=== PATIENT | female | born 1940 | race Caucasian/White ===

== ENCOUNTER 2017-02-07 18:45 | Emergency (ER) | payer OTHER ==
[~2017-02-07 18:45] MED LIST: ASPI325T PO; CIPR500T4 PO; EFFE75CA PO; EXFO5TAB PO; KLOR20TA6 PO; LEVO.125 PO; OMEP20TA PO; OXYC-360 PO; TEMA30CA PO; ZOVI200C24 PO
[2017-02-07 19:04] VITALS: BP 145/84; PULSE 75; RESP 20; TEMP 98.4; O2SAT 97
[2017-02-07] MEDS ORDERED: LEVO125T4 PO (20:14)
[2017-02-07] MEDS ORDERED: EXFO5TAB PO (20:32)
[2017-02-07] MEDS ORDERED: ACYC1CAP16 PO (20:32)
[2017-02-07] MEDS ORDERED: ASPI325T PO (20:32)
[2017-02-07] MEDS ORDERED: OMEP40CA2 PO (20:32)
[2017-02-07] MEDS ORDERED: POTA-163 PO (20:32)
[2017-02-07] MEDS ORDERED: TEMA30CA PO (20:32)
--- NOTE | 2017-02-07 21:53 | RADHPO ---
EXAM DATE/TIME: 02/07/2017 21:37 [facility] COMPARISON: No previous studies available for comparison. INDICATIONS : Right knee pain from fall today. MEDICAL HISTORY : Gastroesophageal reflux disease. Stroke. Hypertension. SURGICAL HISTORY : Hysterectomy. Appendectomy. ENCOUNTER: Initial ACUITY: 1 day PAIN SCORE: 5/10 LOCATION: Right knee FINDINGS: No fracture or subluxation seen of the right knee. No perceptible joint effusion or extra-articular s oft tissue swelling. There is osteoarthritis, moderate to severe the medial compartment and moderate at the lateral and patellofemoral compartments. CONCLUSION: Tricompartment osteoarthritis of the right knee. No fracture or subluxation. Cam Lo MD on February 07, 2017 at 21:50 Board Certified Radiologist. This report was verified electronically.
--- NOTE | 2017-02-07 21:58 | PD ---
HPI Chief Complaint: Injury Time Seen by Provider: 20:40 Travel History International Travel<30 days: No Contact w/Intl Traveler<30days: No Traveled to known affect area: No History of Present Illness HPI Approximately 6 hours prior to ER evaluation the patient experienced a mechanical fall well and tripping over a curb in the rain. She landed on her right knee. The pain has been constant since. It's worse with flexion and extension. She is ambulatory with a severe limp. She had no head injury or loss of consciousness. Mechanism was mechanical. The patient 76 years old. PFSH Past Medical History Arthritis: Yes Asthma: Yes Autoimmune Disease: No Blood Disorders: No Anxiety: Yes Depression: Yes Cancer: Yes (SKIN) High Cholesterol: Yes Cerebrovascular Accident: Yes (TIA) Diminished Hearing: No GERD: Yes Hiatal Hernia: Yes Hypertension: Yes Musculoskeletal: Yes (FIBROMYALGIA) Ulcer: Yes Influenza Vaccination: Yes PNEUMOCCOCAL Vaccine (Year): 2008 Past Surgical History AICD: No Genitourinary Surgery: Yes (BLADDER SURGERY FOR INCONTINENCE) Hysterectomy: Yes Pacemaker: No Other Surgery: Yes (SURGERY FOR REFLUX? HIATAL HERNIA?, BREAST REDUCTION) Social History Alcohol Use: No Tobacco Use: No Substance Use: No Allergies-Medications (Allergen,Severity, Reaction): Coded Allergies: Loratadine (Verified Allergy, Severe, ITCHY, 03/19/14) Reported Meds & Prescriptions Reported Meds & Active Scripts Active Reported Potassium Chloride ER (Potassium Chloride) 20 Meq Tab 20 Meq PO DAILY Temazepam 30 Mg Cap 30 Mg PO HS PRN Omeprazole 40 Mg Cap 40 Mg PO DAILY Aspirin 325 Mg Tab 325 Mg PO DAILY Exforge (Amlodipine-Valsartan) 5-160 Mg Tab 1 Tab PO DAILY Zovirax (Acyclovir) 200 Mg Cap 200 Mg PO DAILY Levothyroxine (Levothyroxine Sodium) 125 Mcg Tab 125 Mcg PO DAILY Review of Systems General / Constitutional: No: Fever, Chills Musculoskeletal: Positive: Pain Physical Exam Narrative GENERAL: 76-year-old female pleasant no acute distress SKIN: Warm and dry. GASTROINTESTINAL: Abdomen soft, non-tender, nondistended. Hepatic and splenic margins not palpable. MUSCULOSKELETAL: Minimal tenderness about the patella, fibular head and tibia on the left side. There is some mild generalized swelling throughout. Antalgic gait is observed. NEUROLOGICAL: Awake and alert. No obvious cranial nerve deficits. Motor grossly within normal limits. Normal speech. PSYCHIATRIC: Appropriate mood and affect; insight and judgment normal. Data Data Last Documented VS Vital Signs Date Time Temp Pulse Resp B/P Pulse Ox O2 Delivery O2 Flow Rate FiO2 02/07/17 19:04 98.4 75 20 145/84 97 Orders Knee, Complete (4vws) (02/07/17 ) MDM Medical Decision Making Medical Screen Exam Complete: Yes Emergency Medical Condition: Yes Medical Record Reviewed: Yes Differential Diagnosis knee fracture, contusion, internal derangement of knee, hemarthrosis Narrative Course X-ray reveals no acute fracture. Unfortunately the patient left prior to reassessment and to results of the x-ray of the knee. We had discussed the [place] knee criteria and why imaging was indicated in this scenario during the initial assessment. Evidently the son disagreed and they both left having waited about 3 hours. this visit will be recorded as a left AGAINST MEDICAL ADVICE since the patient left prior to discussion of diagnosis, treatment and for discussion of return precautions and follow-up plans. Diagnosis Primary Impression: Fall Qualified Code: W19.XXXA - Fall, initial encounter Additional Impressions: Contusion of right knee Qualified Code: S80.01XA - Contusion of right knee, initial encounter Left against medical advice Referrals: Dagoberto Goodwin MD call for appointment Additional Instructions: You have a choice when it comes to health care, and we are glad that you chose [facility]. Hopefully, we have met your expectations on today's visit. You are welcome to return to [facility] at any time, as we are committed to meeting the health care needs of our community. Med/Other Pt SpecificInfo: No Change to Meds Disposition: 07 AGAINST MEDICAL ADVICE Condition: Phan Aguilar MD Feb 07, 2017 21:58
== END 2017-02-07 22:12 | disposition left against medical advice (07) ==
LOC: PHED 18:45 → PHEFT 22:12
DX: S80.01XA Contusion of right knee, initial encounter (principal); Z86.73 Personal history of transient ischemic attack (TIA), and cerebral infarction without residual deficits; M19.90 Unspecified osteoarthritis, unspecified site; J45.909 Unspecified asthma, uncomplicated; I10 Essential (primary) hypertension; F41.8 Other specified anxiety disorders; W10.1XXA Fall (on)(from) sidewalk curb, initial encounter; Y93.01 Activity, walking, marching and hiking; Y92.89 Other specified places as the place of occurrence of the external cause; Y99.9 Unspecified external cause status; Z53.21 Procedure and treatment not carried out due to patient leaving prior to being seen by health care provider
CPT/HCPCS: 73564; 99283

== ENCOUNTER → 2017-02-16 | Outpatient (CLI) | payer OTHER ==
[~2017-02-16] MED LIST changes: +ACYC1CAP16 PO; -CIPR500T4 PO; +COMMODE 3-IN-11 MIS; +CPMMACHINE; -EFFE75CA PO; +ENOX40P SQ; -KLOR20TA6 PO; -LEVO.125 PO; +LEVO125T4 PO; +LIOT5TAB3 PO; +NORC5TAB PO; -OMEP20TA PO; +OMEP40CA2 PO; -OXYC-360 PO; +POTA-163 PO; +WALKER WHEELS/F1 MIS; -ZOVI200C24 PO
--- NOTE | 2017-02-17 10:34 | EKG ---
Date Performed: 02/16/2017 Time Performed: 16:46:37 PTAGE: 77 years EKG: Sinus rhythm NONSPECIFIC T-WAVE ABNORMALITY BORDERLINE ECG PREVIOUS TRACING : 03/19/2014 16.10 DOCTOR: Arash Polo Interpretating Date/Time 02/17/2017 10:34:23
== END ==
LOC: HRAD 16:03
PROVIDERS: ATTEND Orthopaedic Surgery
DX: Z01.810 Encounter for preprocedural cardiovascular examination (principal)
CPT/HCPCS: 93005

== ENCOUNTER 2017-02-22 13:27 | Inpatient (IN) | payer OTHER, MEDICARE ==
[~2017-02-22] VITALS: Ht 160 cm; Wt 67.9 kg
[~2017-02-22 13:27] MED LIST changes: -COMMODE 3-IN-11 MIS; -CPMMACHINE; -ENOX40P SQ; -LIOT5TAB3 PO; -NORC5TAB PO; -WALKER WHEELS/F1 MIS
[2017-02-24] MEDS ORDERED: BUPIVACAINE LIPOSOME PF 1.3% 20 ML VIAL NERV BLOCK ONE (07:44)
[2017-02-24] MEDS ORDERED: SODIUM CHLORID 0.9% 500 ML IV SCH (09:00)
[2017-02-24] MEDS ORDERED: INSULIN HUMAN REGULAR 1,000 UNITS/10 ML VIAL SQ PRN (09:00)
[2017-02-24] MEDS ORDERED: LACTATED RINGER'S 1000 ML IV SCH (09:00)
[2017-02-24] MEDS ORDERED: POVIDONE IODINE 5% (ANTISEPSIS KIT) 4 APPLICATIONS EACH NARE SCH (09:00)
[2017-02-24] MEDS ORDERED: METOPROLOL TARTRATE 25 MG TAB PO PRN (09:00)
[2017-02-24] MEDS ORDERED: VANCOMYCIN 1000 MG/NS 250 ML (for <70 kg) IV SCH ×2 (09:15)
[2017-02-24] MEDS ORDERED: CHLORHEXIDINE GLUCONATE 2 % 1 PACK (2 CLOTHS) TOPICAL SCH (09:15)
[2017-02-24] MEDS ORDERED: DEXAMETHASONE SOD PHOS 20 MG/5 ML VIAL IV SCH (09:15)
[2017-02-24] MEDS ORDERED: ceFAZolin 2 GM PREMIX 50 ML IV SCH (09:15)
[2017-02-24 10:10] VITALS: BP 123/51; PULSE 62; RESP 16; TEMP 97.9; O2SAT 97
[2017-02-24] MEDS ORDERED: LIOT5TAB3 PO (10:51)
[2017-02-24] MEDS ORDERED: GENTAMICIN SULFATE 80 MG/2 ML VIAL ONE (11:13)
[2017-02-24] MEDS ORDERED: FAMOTIDINE 20 MG/2 ML VIAL ONE (11:23)
[2017-02-24] MEDS ORDERED: MIDAZOLAM HCL 5 MG/5 ML VIAL ONE (11:23)
[2017-02-24] MEDS ORDERED: MORPHINE SULFATE 4 MG/ML INJ ONE (11:36)
[2017-02-24] MEDS ORDERED: ACETAMINOPHEN 1000 MG/100 ML VIAL IV ONE (11:36)
[2017-02-24] MEDS ORDERED: fentaNYL CITRATE 250 MCG/5 ML AMP ONE (11:36)
[2017-02-24] MEDS: TRANEXAMIC ACID IV SCH (12:02)
[2017-02-24] MEDS: SODIUM CHLORIDE 0.9% IV SCH (12:02)
[2017-02-24] MEDS: ROPIVACAINE PERI-ARTICULAR INJECTION. P-ARTICULR SCH ×5 (12:37)
[2017-02-24] MEDS ORDERED: PROPOFOL 200 MG/20 ML AMP IV ONE (13:14)
[2017-02-24] MEDS ORDERED: ePHEDrine/NS 25 MG/5 ML SYR IV ONE (13:15)
[2017-02-24] MEDS ORDERED: ONDANSETRON HCL 4 MG/2 ML VIAL IV PUSH ONE (13:15)
[2017-02-24] MEDS ORDERED: PHENYLEPH/NS 1000 MCG/10 ML SYR IV ONE (13:15)
[2017-02-24] MEDS ORDERED: NEOSTIGMINE 3 MG/3 ML SYR IV ONE (13:15)
[2017-02-24] MEDS ORDERED: LACTATED RINGER'S 1000 ML INJ 1,000 ML IV ONE (13:16)
--- NOTE | 2017-02-24 14:07 | PD.OP ---
cc: Srikanth Rivera MD Operative Report Date of Surgery: Feb 24, 2017 Preoperative Diagnosis: Right knee severe osteoarthritis Postoperative Diagnosis: Same Procedure: Right total knee arthroplasty Anesthesia: Adductor canal block and general Surgeon: Srikanth Rivera Dealer Relationship Manager(s): CHRIS Boswell The surgical procedure was assisted by my Advanced Registered Nurse Practitioner. My PHARMACISTS presence was necessary throughout this case for the manipulation and positioning of the surgical extremity. My PHARMACISTS was assisting me throughout the duration of this procedure. The skill set of an Advance Registered Nurse Practitioner was medically necessary to complete this procedure. During the surgical case, the classroom technology coach was working at the back table and the Advance Registered Nurse Practitioner was directly assisting me. Operation and Findings: IMPLANTS: DePuy Attune: Patella: size 35. Femur, posterior stabilized size 6. Tibia, rotating platform size 5. Tibial insert, rotating platform, posterior stabilized size 4 mm thickness. ESTIMATED BLOOD LOSS: 100 cc TOURNIQUET TIME: 39 minutes at 250 mmHg pressure. JUSTIFICATION FOR PROCEDURE: The patient has end-stage osteoarthritis to the knee. There is an attached conservative measures pathway form in the chart that describes the nonoperative measures that were undertaken prior to consideration of surgical management. The patient understood the risks and benefits of surgical management. See my office notes for further details PROCEDURE: The patient was brought back to the operative theatre. Adequate anesthesia was obtained. The patient received intravenous vancomycin and Ancef. The lower extremity was prepped and draped in the usual sterile fashion.The leg was exsanguinated, the tourniquet was raised. A standard anterior incision was performed followed by medial parapatellar arthrotomy was performed. End-stage arthritis was identified. Osteotomy of the patella was performed. We drilled holes for the patella. We trialed the patella component. We placed an intramedullary guide into the distal femur. We ultimately resected 14 mm off of the distal femur in 5 degrees of valgus. The remnants of the ACL and PCL were resected. Osteotomy of the proximal tibia was performed, resecting 5 mm off of the medial side. This was done with 3 degrees of posterior slope using an extramedullary guide. The distal end of the guide was placed in the mid aspect of the ankle. The femur was sized, and four chamfer cuts were completed in 3 of external rotation. We then cut the central box in the distal femur to replace the PCL. We resected the remnants of the menisci and removed osteophytes off of the femur and tibia. We then trialed the knee. We punched the tibia for the keel, and then used standard technique to cement in components. Excess cement was removed. We trialed the knee again and the final polyethylene thickness was chosen to provide extension to 0 degrees, and flexion of 140 degrees to gravity. The ligaments were appropriately balanced. Lateral release was not necessary to obtain excellent patellofemoral tracking. The tourniquet was released and adequate hemostasis was obtained. An intra- articular injection of a ropivacaine cocktail was injected. The posterior knee was inspected for excess cement, which was removed. The final polyethylene was put into position after thorough irrigation. We then closed deep fascia with a #2 Stratafix followed by skin with 2-0 Vicryl followed by chhaya. Postop plan is to weight-bear as tolerated. DVT prophylaxis will be performed with Hardeep, ELSA cheek, early mobilization, and Lanoxin followed by aspirin. Srikanth Rivera MD Feb 24, 2017 14:07
[2017-02-24] MEDS ORDERED: ASPI325T PO (14:09)
[2017-02-24] MEDS ORDERED: ENOX40P SQ (14:09)
[2017-02-24] MEDS ORDERED: NORC5TAB PO (14:09)
[2017-02-24] MEDS ORDERED: diphenhydrAMINE HCL 50 MG/ML VIAL IV PRN (14:15)
[2017-02-24] MEDS ORDERED: MORPHINE SULFATE 4 MG/ML INJ IV PUSH PRN (14:15)
[2017-02-24] MEDS ORDERED: SODIUM CHLORIDE 0.9% FLUSH 5 ML FLUSH IVF PRN (14:15)
[2017-02-24] MEDS ORDERED: Post-op Orders (for Pharmacy) MISC XX ONE (14:15)
[2017-02-24] MEDS ORDERED: ONDANSETRON HCL 4 MG/2 ML VIAL IVP PRN (14:15)
[2017-02-24] MEDS ORDERED: NALOXONE HCL 0.4 MG/ML AMP IV PRN (14:15)
[2017-02-24] MEDS ORDERED: ALUMINUM/MAGNESIUM/SIMETH 30 ML CUP PO PRN (14:15)
[2017-02-24] MEDS ORDERED: MAGNESIUM HYDROXIDE SUSP 30 ML CUP PO PRN (14:15)
[2017-02-24] MEDS ORDERED: BISACODYL 10 MG SUPP RECTAL PRN (14:15)
[2017-02-24] MEDS ORDERED: DO NOT ADM ANY ANTICOAGULANT DRUGS PRN (14:20)
--- NOTE | 2017-02-24 14:28 | HHI.DCPOC ---
Discharge Care Plan Diagnosis: (1) Status post total knee replacement, right (2) Primary localized osteoarthrosis, lower leg Your Health Problems Are: Difficulty with ADL Goals to Promote Your Health * To prevent worsening of your condition and complications * To maintain your health at the optimal level Directions to Meet Your Goals Take your medications as prescribed Follow your dietary instruction Follow activity as directed Keep your appointments as scheduled Take your immunizations and boosters as scheduled If your symptoms worsen call your PCP, if no PCP go to Urgent Care Center or Emergency Room Smoking is Dangerous to Your Health. Avoid second hand smoke Call the 24-hour hour crisis hotline for domestic abuse at Phan Forrest Feb 24, 2017 14:28
--- NOTE | 2017-02-24 14:30 | HHI.FF ---
Face to Face Verification Diagnosis: (1) Primary localized osteoarthrosis, lower leg (2) Status post total knee replacement, right Physical Therapy Gait training, Transfer training, bed to chair Knee: Total knee Right LE Weight Bearing: WB as tolerated Right LE Range of Motion: Active ROM Nursing Nursing: Chandrika teaching, Dressing changes Dressing Changes: Daily dressing change I have seen patient Juliana Sands on 02/24/17. My clinical findings support the need for the requested home health care services because: Limited ability to care for self High risk of falls I certify that my clinical findings support that this patient is homebound because: Post-op weakness Unsteady gait/balance Phan Forrest Feb 24, 2017 14:30
[2017-02-24] MEDS ORDERED: CPMMACHINE (14:34)
[2017-02-24] MEDS ORDERED: WALKER WHEELS/F1 MIS (14:34)
[2017-02-24] MEDS ORDERED: COMMODE 3-IN-11 MIS (14:34)
--- NOTE | 2017-02-24 14:45 | PD.CONS ---
HPI Service [facility] Consult Requested By Reason for Consult medical management Primary Care Physician Non-Staff Diagnoses: History of Present Illness patient is a 77 y/o female with history of osteoarthritis, hypertension, hypothyroidism and history of CVA, underwent right total knee arthroplasty today. at the time of my evaluation she was in no acute distress, complaining of some pain to the right knee.otherwise she denies any chest pain, sob, nausea or dizziness. Review of Systems Constitutional: DENIES: Fever, Weight loss, Chills, Night Sweats Eyes: DENIES: Blurred vision, Diplopia, Vision loss, Double Vision Ears, nose, mouth, throat: DENIES: Tinnitus, Vertigo, Throat pain, Epistaxis Respiratory: DENIES: Apneas, Cough, Snoring, Wheezing, Hemoptysis, Sputum production, Shortness of breath Cardiovascular: DENIES: Chest pain, Palpitations, Syncope, Dyspnea on Exertion , PND, Lower Extremity Edema, Orthopnea, Claudication Gastrointestinal: DENIES: Abdominal pain, Black stools, Bloody stools, Constipation, Diarrhea, Nausea, Vomiting, Difficulty Swallowing, Anorexia Genitourinary: DENIES: Urinary frequency, Urgency, Hematuria, Dysuria Musculoskeletal: COMPLAINS OF: Joint pain (right knee), DENIES: Muscle aches, Stiffness, Joint Swelling Integumentary: DENIES: Rash Neurologic: DENIES: Abnormal gait, Headache, Localized weakness, Paresthesias, Seizures, Speech Problems, Tremor, Poor Balance Psychiatric: DENIES: Anxiety, Confusion, Mood changes, Depression, Hallucinations, Agitation, Suicidal Ideation, Homicidal Ideation, Delusions Past Family Social History Allergies: Coded Allergies: Loratadine (Verified Allergy, Severe, ITCHY, 03/19/14) Past Medical History hypertension hypothyroidism CVA Past Surgical History appendectomy hernia repair breast reduction Reported Medications aspirin Exforge levothyroxine liothyronine Active Ordered Medications Current Medications Lactated Ringer's 1,000 ml @ 30 mls/hr Q24H IV Last administered on 02/24/17t 10:45; Start 02/24/17 at 09:00; Stop 02/24/17 at 14:26; Status DC Sodium Chloride (NS 500 ml Inj) 500 ml @ 30 mls/hr [id number] IV ; Start 02/24/17 at 09:00; Stop 02/24/17 at 14:26; Status DC Insulin Human Regular (NovoLIN R INJ) See Protocol Table ... UNSCH X1 PRN SQ SEE PROTOCOL; Start 02/24/17 at 09:00; Stop 02/25/17 at 08:59 Metoprolol Tartrate (Lopressor) 25 mg UNSCH X1 PRN PO SEE LABEL COMMENTS; Start 02/24/17 at 09:00; Stop 02/25/17 at 08:59 Povidone Iodine (Betadine 5% Antisepsis Kit) 1 applic PRE SALES ARCHITECT EACH NARE Last administered on 02/24/17 10:44; Start 02/24/17 at 09:00; Stop 02/25/17 at 08:59 Chlorhexidine Gluconate (Chlorhexidine 2% Cloth) 3 pack PRE SALES ARCHITECT TOPICAL ; Start 02/24/17 at 09:15; Stop 02/25/17 at 09:14 Povidone Iodine 1 applic 1 applic ONCE TOPICAL ; Start 02/24/17 at 09:15; Stop 02/27/17 at 09:14 Cefazolin Sodium/ Dextrose 50 ml @ 100 mls/hr PRE SALES ARCHITECT IV Last administered on 02/24/17 10:39; Start 02/24/17 at 09:15; Stop 02/27/17 at 09:14 Vancomycin HCl 1000 mg/Sodium Chloride 250 ml @ 250 mls/hr PRE SALES ARCHITECT IV Last administered on 02/24/17 10:56; Start 02/24/17 at 09:15; Stop 02/27/17 at 09:14 Tranexamic Acid 587 mg/Sodium Chloride 105.87 ml @ 200 mls/ hr ONCE IV Last administered on 02/24/17 12:02; Start 02/24/17 at 10:00; Stop 02/25/17 at 16:00 Ropivacaine/ Ketorolac Tromethamine/ Epinephrine HCl/ Clonidine/Sodium Chloride (Naropin 0.5% Pf Inj/Toradol Inj/ Adrenalin (1:1000) Inj/ Duraclon Inj/NS Inj) 100 ml @ 200 mls/hr ONCE P-ARTICULR Last administered on 02/24/17 12:37; Start 02/24/17 at 10:00; Stop 02/25/17 at 16:00 Dexamethasone Sodium Phosphate (Decadron Inj) 10 mg PRE SALES ARCHITECT IV Last administered on 02/24/17 10:48; Start 02/24/17 at 09:15; Stop 02/25/17 at 09:14 Gentamicin Sulfate (Gentamicin Inj) 240 mg STK-MED ONCE .ROUTE Last administered on 02/24/17 12:34; Start 02/24/17 at 11:13; Stop 02/24/17 at 11:14 ; Status DC Midazolam HCl (Versed Inj) 5 mg STK-MED ONCE .ROUTE Last administered on 11:27; Start 02/24/17 at 11:23; Stop 02/24/17 at 11:24; Status DC Famotidine (Pepcid Inj) 20 mg STK-MED ONCE .ROUTE Last administered on 11:30; Start 02/24/17 at 11:23; Stop 02/24/17 at 11:24; Status DC Acetaminophen (Ofirmev Inj) 1,000 mg STK-MED ONCE IV ; Start 02/24/17 at 11:36; Stop 02/24/17 at 11:37; Status DC Fentanyl Citrate (fentaNYL INJ) 250 mcg STK-MED ONCE .ROUTE ; Start 02/24/17 at 11:36; Stop 02/24/17 at 11:37; Status DC Morphine Sulfate (Morphine Inj) 4 mg STK-MED ONCE .ROUTE ; Start 02/24/17 at 11: 36; Stop 02/24/17 at 11:37; Status DC Acyclovir (Zovirax) 200 mg DAILY PO ; Start 02/25/17 at 09:00; Status UNV Levothyroxine Sodium (Synthroid) 125 mcg DAILY PO ; Start 02/25/17 at 09:00; Status UNV Liothyronine Sodium (Cytomel) 5 mcg DAILY PO ; Start 02/25/17 at 09:00 Potassium Chloride (KCl) 20 meq DAILY PO ; Start 02/25/17 at 09:00 Non-Formulary Medication 1 tab DAILY PO BPM; Start 02/25/17 at 09:00; Status UNV Pantoprazole Sodium 40 mg 40 mg DAILY PO ; Start 02/25/17 at 09:00 Sodium Chloride (NS 1000 ml Inj) 1,000 ml @ 100 mls/hr Q10H IV ; Start at 14:04 IV Flush (NS Flush) 2 ml UNSCH PRN IVF FLUSH AFTER USING IV ACCESS; Start 02/24 at 14:15 IV Flush 2 ml 2 ml BID IVF ; Start 02/24/17 at 21:00 Cefazolin Sodium/ Sodium Chloride (Ancef Inj/NS Inj) 100 ml @ 200 mls/hr Q6H IV ; Start 02/24/17 at 17:00; Stop 02/25/17 at 05:29 Miscellaneous Information (Post-op Orders (for Pharmacy)) STAT ONCE XX ; Start 02/24/17 at 14:15; Stop 02/24/17 at 14:16; Status UNV Dexamethasone Sodium Phosphate (Decadron Inj) 10 mg ONCE ONCE IV ; Start at 07:45; Stop 02/25/17 at 07:46 Enoxaparin Sodium (Lovenox Inj) 40 mg Q24H SQ ; Start 02/24/17 at 14:15; Stop at 14:16; Status UNV Acetaminophen/ Hydrocodone Bitart ([place] 5-325 Mg) 1 tab Q4H PRN PO PAIN LESS THAN 5 ON SCALE; Start 02/24/17 at 14:15; Status UNV Acetaminophen/ Hydrocodone Bitart 2 tab 2 tab Q4H PRN PO PAIN SCALE 5 TO 10; Start 02/24/17 at 14:15; Status UNV Tranexamic Acid/ Sodium Chloride (Cyklokapron Inj/ NS Inj) 105.87 ml @ 200 mls / hr UNSCH IV ; Start 02/24/17 at 15:00; Stop 02/24/17 at 21:00 Multivitamins/ Minerals Therapeutic (Theragran M Tab) 1 tab BID PO ; Start 02/25 at 21:00; Stop 04/26/17 at 20:59; Status UNV Ondansetron HCl (Zofran Inj) 4 mg Q6H PRN IVP NAUSEA OR VOMITING; Start at 14:15; Status UNV Docusate Sodium (Colace) 100 mg BID PO ; Start 02/25/17 at 21:00 Al Hydrox/Mg Hydrox/Simethicone (Mag-Al Plus Susp Liq) 30 ml Q6H PRN PO INDIGESTION; Start 02/24/17 at 14:15 Zolpidem Tartrate (Ambien) 5 mg HS PRN PO SLEEP; Start 02/24/17 at 21:00 Bisacodyl (Dulcolax Supp) 10 mg DAILY PRN [place] CONSTIPATION; Start 02/24/17 at 14 :15; Status UNV Magnesium Hydroxide (Milk Of Magnluke Liq) 30 ml DAILY PRN PO CONSTIPATION; Start 02/24/17 at 14:15; Status UNV Naloxone HCl (Narcan Inj) 0.4 mg UNSCH PRN IV RESPIRATORY RATE LESS THAN 10; Start 02/24/17 at 14:15 Diphenhydramine HCl (Benadryl Inj) 25 mg Q6H PRN IV ITCHING; Start 02/24/17 at 14:15 Morphine Sulfate (Morphine Inj) 2 mg Q3H PRN IV PUSH pain greater than 5; Start 02/24/17 at 14:15; Status UNV Family History not relevant to this consult. Social History doesn't smoke or drink. Physical Exam Vital Signs Vital Signs Date Time Temp Pulse Resp B/P Pulse Ox O2 Delivery O2 Flow Rate FiO2 02/24/17 10:10 97.9 62 16 123/51 97 Physical Exam GENERAL: This is a well-nourished, well-developed patient, in no apparent distress. SKIN: No rashes, ecchymoses or lesions. Cool and dry. HEAD: Atraumatic. Normocephalic. No temporal or scalp tenderness. EYES: Pupils equal round and reactive. Extraocular motions intact. No scleral icterus. No injection or drainage. ENT: Nose without bleeding, purulent drainage or septal hematoma. Throat without erythema, tonsillar hypertrophy or exudate. Uvula midline. Airway patent. NECK: Trachea midline. No JVD or lymphadenopathy. Supple, nontender, no meningeal signs. CARDIOVASCULAR: Regular rate and rhythm without murmurs, gallops, or rubs. RESPIRATORY: Clear to auscultation. Breath sounds equal bilaterally. No wheezes , rales, or rhonchi. GASTROINTESTINAL: Abdomen soft, non-tender, nondistended. No hepato-splenomegaly , or palpable masses. No guarding. MUSCULOSKELETAL: right knee covered with clean dressing. NEUROLOGICAL: Awake and alert. Cranial nerves II through XII intact. Motor and sensory grossly within normal limits. Five out of 5 muscle strength in all muscle groups. Normal speech. Laboratory Laboratory Tests Test 02/24/17 10:33 Blood Type O NEGATIVE Antibody Screen NEGATIVE Blood Bank Comment Assessment and Plan Assessment and Plan A/P - osteoarthritis of the right knee- s/p right total knee arthroplasty continue with pain control and PT- management per ortho -hypertension/ hypothyroidism; resumed home meds -history of CVA; will resume aspirin when ok with ortho -DVT prophylaxis with lovenox- per ortho. thank you for the consult. Discussed Condition With the patient and RN. Nery Joe MD Feb 24, 2017 14:45
[2017-02-24] MEDS ORDERED: *morphine SULFATE 8 MG/ML PERIprocedure ONLY ONE ×2 (14:55→15:15)
[2017-02-24] MEDS ORDERED: SODIUM CHLORIDE 0.9% IV SCH (15:00)
[2017-02-24] MEDS: SODIUM CHLOR 0.9% 1000 ML INJ 1,000 ML IV SCH (15:00)
[2017-02-24] MEDS ORDERED: TRANEXAMIC ACID IV SCH (15:00)
--- NOTE | 2017-02-24 15:17 | RADRPT ---
EXAM DATE/TIME: 02/24/2017 14:30 [facility] COMPARISON: No previous studies available for comparison. INDICATIONS : Post op right knee surgery. MEDICAL HISTORY : None. SURGICAL HISTORY : None. ENCOUNTER: Initial ACUITY: 1 day PAIN SCORE: 10/10 LOCATION: Right knee FINDINGS: 2 views of the knee show a total knee prosthesis in good position. No fracture or dislocation is obse rved. Soft tissue swelling is noted. Air is noted within the joint. CONCLUSION: Total knee prosthesis in good position. Marcello Bettencourt Jr., MD on February 24, 2017 at 15:14 Board Certified Radiologist. This report was verified electronically.
[2017-02-24] MEDS ORDERED: *HYDROmorphone PF 1 MG VIAL PERIprocedural Use ONLY ONE ×2 (15:36→15:58)
[2017-02-24] MEDS ORDERED: *RESP: ALBUTEROL 2.5 MG/3 ML NEB (PRN) PERIprocedural Use ONLY NEB ONE (18:04)
[2017-02-24 20:35] VITALS: BP 94/59; PULSE 72; RESP 18; TEMP 96.7; O2SAT 97
[2017-02-24] MEDS ORDERED: ZOLPIDEM TARTRATE 5 MG TAB PO PRN (21:00)
[2017-02-24] MEDS: SODIUM CHLORIDE 0.9% FLUSH 5 ML FLUSH IVF SCH (21:00)
[2017-02-25] VITALS (8 sets, daily range): BP systolic 81–121; BP diastolic 41–58; PULSE 60–80; RESP 16–20; TEMP 95.3–98.4; O2SAT 93–99
[2017-02-25] MEDS: SODIUM CHLOR 0.9% 1000 ML INJ 1,000 ML IV SCH ×3 (00:04→20:04)
[2017-02-25] MEDS: LEVOTHYROXINE SODIUM 125 MCG TAB PO SCH (05:12)
[2017-02-25] MEDS: ACETAMINOPHEN/HYDROcodone 325 MG/5 MG TAB PO PRN ×4 (05:15→17:08)
[2017-02-25 06:49] LABS: HEMATOCRIT 31.7 % (35.0-46.0); PLATELET COUNT 265 TH/MM3 (150-450); RED BLOOD COUNT 3.38 MIL/MM3 (4.00-5.30); RED CELL DISTRIBUTION WIDTH 12.5 % (11.6-17.2); REVIEW FLAG FINAL; WHITE BLOOD COUNT 14.3 TH/MM3 (4.0-11.0)
[2017-02-25] MEDS ORDERED: DEXAMETHASONE SOD PHOS 20 MG/5 ML VIAL IV ONE (07:45)
[2017-02-25] MEDS: PANTOPRAZOLE SOD 40 MG DELAYED RELEASE TAB PO SCH (08:29)
[2017-02-25] MEDS: POTASSIUM CHLORIDE 20 MEQ CONTROLLED RELEASE TAB PO SCH (08:29)
[2017-02-25] MEDS: SODIUM CHLORIDE 0.9% FLUSH 5 ML FLUSH IVF SCH ×2 (08:29→21:00)
[2017-02-25] MEDS: LIOTHYRONINE SODIUM 5 MCG TAB PO SCH (08:29)
[2017-02-25] MEDS: ACYCLOVIR 200 MG CAP PO SCH (08:30)
[2017-02-25] MEDS ORDERED: VALSARTAN 80 MG TAB PO SCH (09:00)
[2017-02-25] MEDS ORDERED: AMLODIPINE VALSARTAN PO SCH (09:00)
[2017-02-25] MEDS ORDERED: amLODIPine BESYLATE 5 MG TAB PO SCH (09:00)
[2017-02-25] MEDS: POVIDONE IODINE 7.5% SCRUB 118 ML BOTTLE TOPICAL SCH (09:15)
[2017-02-25] MEDS: ROPIVACAINE PERI-ARTICULAR INJECTION. P-ARTICULR SCH ×5 (10:00)
[2017-02-25] MEDS: TRANEXAMIC ACID IV SCH (10:00)
[2017-02-25] MEDS: SODIUM CHLORIDE 0.9% IV SCH (10:00)
--- NOTE | 2017-02-25 10:08 | HHI.PR ---
Subjective Remarks sitting on the chair with no distress. pain is controlled. at times feels dizzy. Objective Vitals Vital Signs Date Time Temp Pulse Resp B/P Pulse Ox O2 Delivery O2 Flow Rate FiO2 02/25/17 09:54 94 21 02/25/17 08:00 95.3 62 19 106/41 93 02/25/17 04:40 104/58 02/25/17 04:19 96.4 67 17 81/44 99 02/25/17 00:01 96.0 80 17 99/48 93 02/24/17 20:35 96.7 72 18 94/59 97 02/24/17 20:00 71 14 104/60 95 Nasal Cannula 2 02/24/17 19:00 72 15 98/68 95 Nasal Cannula 2 02/24/17 18:30 79 8 134/69 94 02/24/17 18:00 75 8 118/66 94 02/24/17 17:00 87 8 123/63 93 02/24/17 16:00 67 12 89/48 95 02/24/17 15:45 75 12 106/54 95 02/24/17 15:30 91 12 114/54 95 02/24/17 15:15 74 17 112/58 97 02/24/17 15:00 68 13 108/48 96 02/24/17 14:45 63 14 110/59 96 02/24/17 14:30 78 16 120/59 96 Nasal Cannula 3 02/24/17 14:22 98.0 76 12 91/46 92 Nasal Cannula 3 02/24/17 10:10 97.9 62 16 123/51 97 I/O 02/24/17 02/24/17 02/24/17 02/25/17 02/25/17 02/25/17 07:00 15:00 23:00 07:00 15:00 23:00 Intake Total 700 ml 1278 ml Output Total 300 ml 850 ml Balance 400 ml 428 ml Intake Oral 700 ml 480 ml IV Total 798 ml Output Urine Total 300 ml 850 ml # Bowel Movements 0 0 Result Diagram: 02/25/17 0548 Imaging Last Impressions Knee X-Ray 02/24/17 1404 Signed Impressions: Service Date/Time: Friday, February 24, 2017 14:30 - CONCLUSION: Total knee prosthesis in good position. Marcello Bettencourt Jr., MD Objective Remarks GENERAL: This is a well-nourished, well-developed patient, in no apparent distress. CARDIOVASCULAR: Regular rate and regular rhythm without murmurs, gallops, or rubs. RESPIRATORY: Clear to auscultation. Breath sounds equal bilaterally. No wheezes , rales, or rhonchi. GASTROINTESTINAL: Abdomen soft, non-tender, nondistended. Normal, active bowel sounds MUSCULOSKELETAL: right leg covered with clean dressing. NEURO: Alert & Oriented x4 to person, place, time, situation. Moves all ext x4 Medications and IVs Current Medications Lactated Ringer's 1,000 ml @ 30 mls/hr Q24H IV Last administered on 02/24/17 10:45; Start 02/24/17 at 09:00; Stop 02/24/17 at 14:26; Status DC Sodium Chloride (NS 500 ml Inj) 500 ml @ 30 mls/hr [id number] IV ; Start 02/24/17 at 09:00; Stop 02/24/17 at 14:26; Status DC Insulin Human Regular (NovoLIN R INJ) See Protocol Table ... UNSCH X1 PRN SQ SEE PROTOCOL; Start 02/24/17 at 09:00; Stop 02/25/17 at 08:59; Status DC Metoprolol Tartrate (Lopressor) 25 mg UNSCH X1 PRN PO SEE LABEL COMMENTS; Start 02/24/17 at 09:00; Stop 02/25/17 at 08:59; Status DC Povidone Iodine (Betadine 5% Antisepsis Kit) 1 applic DIRECTOR OF CASEWORK DEPARTMENT EACH NARE Last administered on 02/24/17 10:44; Start 02/24/17 at 09:00; Stop 02/25/17 at 08:59 ; Status DC Chlorhexidine Gluconate (Chlorhexidine 2% Cloth) 3 pack DIRECTOR OF CASEWORK DEPARTMENT TOPICAL ; Start 02/24/17 at 09:15; Stop 02/25/17 at 09:14; Status DC Povidone Iodine 1 applic 1 applic ONCE TOPICAL ; Start 02/24/17 at 09:15; Stop 02/27/17 at 09:14 Cefazolin Sodium/ Dextrose 50 ml @ 100 mls/hr DIRECTOR OF CASEWORK DEPARTMENT IV Last administered on 02/24/17 10:39; Start 02/24/17 at 09:15; Stop 02/27/17 at 09:14 Vancomycin HCl 1000 mg/Sodium Chloride 250 ml @ 250 mls/hr DIRECTOR OF CASEWORK DEPARTMENT IV Last administered on 02/24/17 10:56; Start 02/24/17 at 09:15; Stop 02/27/17 at 09:14 Tranexamic Acid 587 mg/Sodium Chloride 105.87 ml @ 200 mls/ hr ONCE IV Last administered on 02/24/17 12:02; Start 02/24/17 at 10:00; Stop 02/25/17 at 16:00 Ropivacaine/ Ketorolac Tromethamine/ Epinephrine HCl/ Clonidine/Sodium Chloride (Naropin 0.5% Pf Inj/Toradol Inj/ Adrenalin (1:1000) Inj/ Duraclon Inj/NS Inj) 100 ml @ 200 mls/hr ONCE P-ARTICULR Last administered on 02/24/17 12:37; Start 02/24/17 at 10:00; Stop 02/25/17 at 16:00 Dexamethasone Sodium Phosphate (Decadron Inj) 10 mg DIRECTOR OF CASEWORK DEPARTMENT IV Last administered on 02/24/17 10:48; Start 02/24/17 at 09:15; Stop 02/25/17 at 09:14 ; Status DC Gentamicin Sulfate (Gentamicin Inj) 240 mg STK-MED ONCE .ROUTE Last administered on 02/24/17 12:34; Start 02/24/17 at 11:13; Stop 02/24/17 at 11:14 ; Status DC Midazolam HCl (Versed Inj) 5 mg STK-MED ONCE .ROUTE Last administered on 11:27; Start 02/24/17 at 11:23; Stop 02/24/17 at 11:24; Status DC Famotidine (Pepcid Inj) 20 mg STK-MED ONCE .ROUTE Last administered on 11:30; Start 02/24/17 at 11:23; Stop 02/24/17 at 11:24; Status DC Acetaminophen (Ofirmev Inj) 1,000 mg STK-MED ONCE IV ; Start 02/24/17 at 11:36; Stop 02/24/17 at 11:37; Status DC Fentanyl Citrate (fentaNYL INJ) 250 mcg STK-MED ONCE .ROUTE ; Start 02/24/17 at 11:36; Stop 02/24/17 at 11:37; Status DC Morphine Sulfate (Morphine Inj) 4 mg STK-MED ONCE .ROUTE ; Start 02/24/17 at 11: 36; Stop 02/24/17 at 11:37; Status DC Acyclovir (Zovirax) 200 mg DAILY PO Last administered on 02/25/17 08:30; Start 02/25/17 at 09:00 Levothyroxine Sodium (Synthroid) 125 mcg DAILY@06 PO Last administered on 05:12; Start 02/25/17 at 06:00 Liothyronine Sodium (Cytomel) 5 mcg DAILY PO Last administered on 02/25/17 08: 29; Start 02/25/17 at 09:00 Potassium Chloride (KCl) 20 meq DAILY PO Last administered on 02/25/17 08:29; Start 02/25/17 at 09:00 Non-Formulary Medication 1 tab DAILY PO BPM; Start 02/25/17 at 09:00; Status UNV Pantoprazole Sodium 40 mg 40 mg DAILY PO Last administered on 02/25/17 08:29; Start 02/25/17 at 09:00 Sodium Chloride (NS 1000 ml Inj) 1,000 ml @ 100 mls/hr Q10H IV Last administered on 02/25/17 00:04; Start 02/24/17 at 14:04 IV Flush (NS Flush) 2 ml UNSCH PRN IVF FLUSH AFTER USING IV ACCESS; Start 02/24 at 14:15 IV Flush 2 ml 2 ml BID IVF ; Start 02/24/17 at 21:00 Cefazolin Sodium/ Sodium Chloride (Ancef Inj/NS Inj) 100 ml @ 200 mls/hr Q6H IV Last administered on 02/25/17 05:12; Start 02/24/17 at 17:00; Stop at 05:29; Status DC Miscellaneous Information (Post-op Orders (for Pharmacy)) STAT ONCE XX ; Start 02/24/17 at 14:15; Stop 02/24/17 at 14:36; Status DC Dexamethasone Sodium Phosphate (Decadron Inj) 10 mg ONCE ONCE IV Last administered on 02/25/17 08:29; Start 02/25/17 at 07:45; Stop 02/25/17 at 07:46 ; Status DC Enoxaparin Sodium (Lovenox Inj) 40 mg Q24H SQ ; Start 02/25/17 at 13:00; Stop at 13:01 Acetaminophen/ Hydrocodone Bitart ([place] 5-325 Mg) 1 tab Q4H PRN PO PAIN LESS THAN 5 ON SCALE Last administered on 02/25/17 09:36; Start 02/24/17 at 14:15 Acetaminophen/ Hydrocodone Bitart 2 tab 2 tab Q4H PRN PO PAIN SCALE 5 TO 10; Start 02/24/17 at 14:15 Tranexamic Acid/ Sodium Chloride (Cyklokapron Inj/ NS Inj) 105.87 ml @ 200 mls / hr UNSCH IV Last administered on 02/24/17 16:11; Start 02/24/17 at 15:00; Stop 02/24/17 at 21:00; Status DC Multivitamins/ Minerals Therapeutic (Theragran M Tab) 1 tab BID PO ; Start 02/25 at 21:00; Stop 04/26/17 at 20:59 Ondansetron HCl (Zofran Inj) 4 mg Q6H PRN IVP NAUSEA OR VOMITING Last administered on 02/24/17 21:08; Start 02/24/17 at 14:15 Docusate Sodium (Colace) 100 mg BID PO ; Start 02/25/17 at 21:00 Al Hydrox/Mg Hydrox/Simethicone (Mag-Al Plus Susp Liq) 30 ml Q6H PRN PO INDIGESTION; Start 02/24/17 at 14:15 Zolpidem Tartrate (Ambien) 5 mg HS PRN PO SLEEP; Start 02/24/17 at 21:00 Bisacodyl (Dulcolax Supp) 10 mg DAILY PRN RECTAL CONSTIPATION; Start 02/24/17 at 14:15 Magnesium Hydroxide (Milk Of Magnesia Liq) 30 ml DAILY PRN PO CONSTIPATION; Start 02/24/17 at 14:15 Naloxone HCl (Narcan Inj) 0.4 mg UNSCH PRN IV RESPIRATORY RATE LESS THAN 10 Last administered on 02/24/17 18:50; Start 02/24/17 at 14:15 Diphenhydramine HCl (Benadryl Inj) 25 mg Q6H PRN IV ITCHING; Start 02/24/17 at 14:15 Morphine Sulfate (Morphine Inj) 2 mg Q3H PRN IV PUSH pain greater than 5 Last administered on 02/24/17 21:08; Start 02/24/17 at 14:15 Amlodipine Besylate (Norvasc) 5 mg DAILY PO ; Start 02/25/17 at 09:00 Valsartan (Diovan) 160 mg DAILY PO ; Start 02/25/17 at 09:00 Miscellaneous Information ALL NURSING DEPARTME... UNSCH PRN .XX SEE LABEL COMMENTS; Start 02/24/17 at 14:20; Stop 02/25/17 at 14:19 Morphine Sulfate (*morphine INJ PERIprocedure ONLY) 8 mg STK-MED ONCE .ROUTE Last administered on 02/24/17 14:57; Start 02/24/17 at 14:55; Stop 02/24/17 at 14:56; Status DC Morphine Sulfate (*morphine INJ PERIprocedure ONLY) 8 mg STK-MED ONCE .ROUTE Last administered on 02/24/17 15:15; Start 02/24/17 at 15:15; Stop 02/24/17 at 15:16; Status DC Hydromorphone HCl (*DILAUDID PF INJ PERIprocedural ONLY) 1 mg STK-MED ONCE .ROUTE Last administered on 02/24/17 15:36; Start 02/24/17 at 15:36; Stop at 15:37; Status DC Hydromorphone HCl (*DILAUDID PF INJ PERIprocedural ONLY) 1 mg STK-MED ONCE .ROUTE Last administered on 02/24/17 15:58; Start 02/24/17 at 15:58; Stop at 15:59; Status DC Albuterol Sulfate (*ALBUTEROL NEB PERIprocedure ONLY) 2.5 mg STK-MED ONCE NEB Last administered on 02/24/17 18:04; Start 02/24/17 at 18:04; Stop 02/24/17 at 18:05; Status DC A/P Assessment and Plan A/P - osteoarthritis of the right knee- s/p right total knee arthroplasty continue with pain control and PT- management per ortho -hypertension; BP on low side; will hold BP meds- will monitor for now. - hypothyroidism; resumed home meds -history of CVA; resume aspirin when ok with ortho -DVT prophylaxis with lovenox- per ortho. Nery Joe MD Feb 25, 2017 10:08
--- NOTE | 2017-02-25 12:38 | PD.ORT.PN ---
Subjective Post Op Day #: 1 Subjective Remarks Patient resting in bed with mild pain to the right knee. Patient states she wants to stay another night before being discharged. Patient states she has not voided since having cath removed at 6 am. Objective Vitals Vital Signs Date Time Temp Pulse Resp B/P Pulse Ox O2 Delivery O2 Flow Rate FiO2 02/25/17 11:43 97.0 62 20 116/49 98 02/25/17 09:54 94 21 02/25/17 08:00 95.3 62 19 106/41 93 02/25/17 04:40 104/58 02/25/17 04:19 96.4 67 17 81/44 99 02/25/17 00:01 96.0 80 17 99/48 93 02/24/17 20:35 96.7 72 18 94/59 97 02/24/17 20:00 71 14 104/60 95 Nasal Cannula 2 02/24/17 19:00 72 15 98/68 95 Nasal Cannula 2 02/24/17 18:30 79 8 134/69 94 02/24/17 18:00 75 8 118/66 94 02/24/17 17:00 87 8 123/63 93 02/24/17 16:00 67 12 89/48 95 02/24/17 15:45 75 12 106/54 95 02/24/17 15:30 91 12 114/54 95 02/24/17 15:15 74 17 112/58 97 02/24/17 15:00 68 13 108/48 96 02/24/17 14:45 63 14 110/59 96 02/24/17 14:30 78 16 120/59 96 Nasal Cannula 3 02/24/17 14:22 98.0 76 12 91/46 92 Nasal Cannula 3 I/O 02/24/17 02/24/17 02/24/17 02/25/17 02/25/17 02/25/17 07:00 15:00 23:00 07:00 15:00 23:00 Intake Total 700 ml 1278 ml Output Total 300 ml 850 ml Balance 400 ml 428 ml Intake Oral 700 ml 480 ml IV Total 798 ml Output Urine Total 300 ml 850 ml # Bowel Movements 0 0 Result Diagram: 02/25/17 0548 Imaging Last 24 hours Impressions Knee X-Ray 02/24/17 8174 Signed Impressions: Service Date/Time: Friday, February 24, 2017 14:30 - CONCLUSION: Total knee prosthesis in good position. Marcello Bettencourt Jr., MD Procedures Right TKA Objective Remarks The patient's dressing was changed with scant serosanguineous drainage. Incision is well approximated with surgical clips intact. No redness or s/s of infection. Patient has mild ecchymosis to the knee. EHL/TA/G intact. 2+ pedal pulse. Minimal swelling. Calf is soft with moderate tenderness to palpation over the proximal calf. + SILT Assessment & Plan Ortho Post Op Day #: 1 Problem List: Assessment and Plan POD #1: Right TKA 1. WBAT RLE 2. Lovenox for DVT prophylaxis 3. Ice to the right knee PRN] 4. Anticipatory discharge home with home health on Wednesday. 5. US to r/o DVT of RLE secondary to moderate tenderness to right proximal calf. Phan Forrest Feb 25, 2017 12:38
[2017-02-25] MEDS: ENOXAPARIN SODIUM 40 MG/0.4 ML SYRINGE SQ SCH (12:53)
[2017-02-25] MEDS ORDERED: ACETAMINOPHEN 325 MG TAB PO ONE (13:00)
--- NOTE | 2017-02-25 14:11 | RADRPT ---
EXAM DATE/TIME: 02/25/2017 13:16 [facility] COMPARISON: No previous studies available for comparison. INDICATIONS : Pain in right lower extremity. Post total knee replacement right. MEDICAL HISTORY : Hypercholesterolemia. Hypertension. Thyroid disease. TIA. Asthma. Dyspnea. Ulcer. Hiatal hernia. GERD. Stage 2 renal disease. Fibromyalgia. Arthritis. Liver disease. Skin cancer. SURGICAL HISTORY : Total knee replacement, right. Bladder surgery for incontinence. ENCOUNTER: Initial ACUITY: 1 day PAIN SCORE: 4/10 LOCATION: Right leg. TECHNIQUE: Venous ultrasound of the leg was performed from the inguinal ligament to the proximal calf. Real-latasha e, color Doppler and spectral tracing, compression and augmentation techniques were used. FINDINGS: There is normal compressibility of the deep venous system from the inguinal region to the proximal ca lf. No echogenic clot is seen in the lumen of the common femoral, femoral, popliteal, and posterior tibial veins. There is a normal response of the venous system to proximal and distal augmentation an d respiration. CONCLUSION: No evidence of right lower extremity DVT. 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 Kameron Schultz MD on February 25, 2017 at 14:09 Board Certified Radiologist. This report was verified electronically.
[2017-02-25] MEDS: MULTIVITAMINS/MINERALS THERAPEUTIC TAB PO SCH (20:11)
[2017-02-25] MEDS: DOCUSATE SODIUM 100 MG CAP PO SCH (20:12)
[2017-02-25] MEDS ORDERED: TEMAZEPAM 15 MG CAP PO PRN (21:00)
[2017-02-25 21:01] LABS: MEAN CORPUSCULAR HGB CONC 36.4 % (32.0-36.0)
[2017-02-26] VITALS: BP 104/51; PULSE 78; RESP 16; TEMP 97.4; O2SAT 95
[2017-02-26 04:10] VITALS: BP 134/61; PULSE 69; RESP 16; TEMP 96.9; O2SAT 95
[2017-02-26] MEDS: ACETAMINOPHEN/HYDROcodone 325 MG/5 MG TAB PO PRN ×3 (04:21→14:19)
[2017-02-26] MEDS: LEVOTHYROXINE SODIUM 125 MCG TAB PO SCH (04:21)
[2017-02-26] MEDS: SODIUM CHLOR 0.9% 1000 ML INJ 1,000 ML IV SCH (06:04)
[2017-02-26 06:41] LABS: HEMATOCRIT 24.9 % (35.0-46.0); MEAN CELL VOLUME 91.6 FL (80.0-100.0); MEAN CORPUSCULAR HEMOGLOBIN 33.4 PG (27.0-34.0); PLATELET COUNT 208 TH/MM3 (150-450); RED BLOOD COUNT 2.72 MIL/MM3 (4.00-5.30); RED CELL DISTRIBUTION WIDTH 12.7 % (11.6-17.2); WHITE BLOOD COUNT 8.8 TH/MM3 (4.0-11.0)
[2017-02-26 06:46] LABS: REVIEW FLAG FINAL
[2017-02-26 08:00] VITALS: BP 133/57; PULSE 66; RESP 16; TEMP 96.4; O2SAT 97
[2017-02-26] MEDS: SODIUM CHLORIDE 0.9% FLUSH 5 ML FLUSH IVF SCH (09:00)
[2017-02-26] MEDS: POVIDONE IODINE 7.5% SCRUB 118 ML BOTTLE TOPICAL SCH (09:15)
[2017-02-26] MEDS: PANTOPRAZOLE SOD 40 MG DELAYED RELEASE TAB PO SCH (09:25)
[2017-02-26] MEDS: ACYCLOVIR 200 MG CAP PO SCH (09:25)
[2017-02-26] MEDS: DOCUSATE SODIUM 100 MG CAP PO SCH (09:25)
[2017-02-26] MEDS: MULTIVITAMINS/MINERALS THERAPEUTIC TAB PO SCH (09:25)
[2017-02-26] MEDS: LIOTHYRONINE SODIUM 5 MCG TAB PO SCH (09:25)
[2017-02-26] MEDS: POTASSIUM CHLORIDE 20 MEQ CONTROLLED RELEASE TAB PO SCH (09:25)
--- NOTE | 2017-02-26 11:28 | HHI.PR ---
Subjective Remarks resting comfortably with no distress. pain is fairly controlled. Objective Vitals Vital Signs Date Time Temp Pulse Resp B/P Pulse Ox O2 Delivery O2 Flow Rate FiO2 02/26/17 08:00 96.4 66 16 133/57 97 02/26/17 04:10 96.9 69 16 134/61 95 02/26/17 00:00 97.4 78 16 104/51 95 02/25/17 20:30 98.4 60 20 121/57 96 02/25/17 18:44 Room Air 02/25/17 17:00 97.3 72 16 119/58 96 02/25/17 11:43 97.0 62 20 116/49 98 I/O 02/25/17 02/25/17 02/25/17 02/26/17 02/26/17 02/26/17 07:00 15:00 23:00 07:00 15:00 23:00 Intake Total 1278 ml 720 ml 480 ml Output Total 850 ml Balance 428 ml 720 ml 480 ml Intake Oral 480 ml 720 ml 480 ml IV Total 798 ml Output Urine Total 850 ml # Voids 2 3 # Bowel Movements 0 Result Diagram: 02/26/17 0557 Imaging Last Impressions Lower Extremity Ultrasound 02/25/17 0000 Signed Impressions: Service Date/Time: January 13:16 - CONCLUSION: No evidence of right lower extremity DVT. 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 Kameron Schultz MD Knee X-Ray 02/24/17 1404 Signed Impressions: Service Date/Time: Friday, February 24, 2017 14:30 - CONCLUSION: Total knee prosthesis in good position. Marcello Bettencourt Jr., MD Objective Remarks GENERAL: This is a well-nourished, well-developed patient, in no apparent distress. CARDIOVASCULAR: Regular rate and regular rhythm without murmurs, gallops, or rubs. RESPIRATORY: Clear to auscultation. Breath sounds equal bilaterally. No wheezes , rales, or rhonchi. GASTROINTESTINAL: Abdomen soft, non-tender, nondistended. Normal, active bowel sounds MUSCULOSKELETAL: right leg covered with clean dressing. NEURO: Alert & Oriented x4 to person, place, time, situation. Moves all ext x4 Medications and IVs Current Medications Lactated Ringer's 1,000 ml @ 30 mls/hr Q24H IV Last administered on 02/24/17 10:45; Start 02/24/17 at 09:00; Stop 02/24/17 at 14:26; Status DC Sodium Chloride (NS 500 ml Inj) 500 ml @ 30 mls/hr [id number] IV ; Start 02/24/17 at 09:00; Stop 02/24/17 at 14:26; Status DC Insulin Human Regular (NovoLIN R INJ) See Protocol Table ... UNSCH X1 PRN SQ SEE PROTOCOL; Start 02/24/17 at 09:00; Stop 02/25/17 at 08:59; Status DC Metoprolol Tartrate (Lopressor) 25 mg UNSCH X1 PRN PO SEE LABEL COMMENTS; Start 02/24/17 at 09:00; Stop 02/25/17 at 08:59; Status DC Povidone Iodine (Betadine 5% Antisepsis Kit) 1 applic FILTER TANK OPERATOR EACH NARE Last administered on 02/24/17 10:44; Start 02/24/17 at 09:00; Stop 02/25/17 at 08:59 ; Status DC Chlorhexidine Gluconate (Chlorhexidine 2% Cloth) 3 pack FILTER TANK OPERATOR TOPICAL ; Start 02/24/17 at 09:15; Stop 02/25/17 at 09:14; Status DC Povidone Iodine 1 applic 1 applic ONCE TOPICAL ; Start 02/24/17 at 09:15; Stop 02/27/17 at 09:14 Cefazolin Sodium/ Dextrose 50 ml @ 100 mls/hr FILTER TANK OPERATOR IV Last administered on 02/24/17 10:39; Start 02/24/17 at 09:15; Stop 02/27/17 at 09:14 Vancomycin HCl 1000 mg/Sodium Chloride 250 ml @ 250 mls/hr FILTER TANK OPERATOR IV Last administered on 02/24/17 10:56; Start 02/24/17 at 09:15; Stop 02/27/17 at 09:14 Tranexamic Acid 587 mg/Sodium Chloride 105.87 ml @ 200 mls/ hr ONCE IV Last administered on 02/24/17 12:02; Start 02/24/17 at 10:00; Stop 02/25/17 at 16:00 ; Status DC Ropivacaine/ Ketorolac Tromethamine/ Epinephrine HCl/ Clonidine/Sodium Chloride (Naropin 0.5% Pf Inj/Toradol Inj/ Adrenalin (1:1000) Inj/ Duraclon Inj/NS Inj) 100 ml @ 200 mls/hr ONCE P-ARTICULR Last administered on 02/24/17 12:37; Start 02/24/17 at 10:00; Stop 02/25/17 at 16:00; Status DC Dexamethasone Sodium Phosphate (Decadron Inj) 10 mg FILTER TANK OPERATOR IV Last administered on 02/24/17 10:48; Start 02/24/17 at 09:15; Stop 02/25/17 at 09:14 ; Status DC Gentamicin Sulfate (Gentamicin Inj) 240 mg STK-MED ONCE .ROUTE Last administered on 02/24/17 12:34; Start 02/24/17 at 11:13; Stop 02/24/17 at 11:14 ; Status DC Midazolam HCl (Versed Inj) 5 mg STK-MED ONCE .ROUTE Last administered on 11:27; Start 02/24/17 at 11:23; Stop 02/24/17 at 11:24; Status DC Famotidine (Pepcid Inj) 20 mg STK-MED ONCE .ROUTE Last administered on 11:30; Start 02/24/17 at 11:23; Stop 02/24/17 at 11:24; Status DC Acetaminophen (Ofirmev Inj) 1,000 mg STK-MED ONCE IV ; Start 02/24/17 at 11:36; Stop 02/24/17 at 11:37; Status DC Fentanyl Citrate (fentaNYL INJ) 250 mcg STK-MED ONCE .ROUTE ; Start 02/24/17 at 11:36; Stop 02/24/17 at 11:37; Status DC Morphine Sulfate (Morphine Inj) 4 mg STK-MED ONCE .ROUTE ; Start 02/24/17 at 11: 36; Stop 02/24/17 at 11:37; Status DC Acyclovir (Zovirax) 200 mg DAILY PO Last administered on 02/26/17 09:25; Start 02/25/17 at 09:00 Levothyroxine Sodium (Synthroid) 125 mcg DAILY@06 PO Last administered on 04:21; Start 02/25/17 at 06:00 Liothyronine Sodium (Cytomel) 5 mcg DAILY PO Last administered on 02/26/17 09: 25; Start 02/25/17 at 09:00 Potassium Chloride (KCl) 20 meq DAILY PO Last administered on 02/26/17 09:25; Start 02/25/17 at 09:00 Non-Formulary Medication 1 tab DAILY PO BPM; Start 02/25/17 at 09:00; Status UNV Pantoprazole Sodium 40 mg 40 mg DAILY PO Last administered on 02/26/17 09:25; Start 02/25/17 at 09:00 Sodium Chloride (NS 1000 ml Inj) 1,000 ml @ 100 mls/hr Q10H IV Last administered on 02/25/17 00:04; Start 02/24/17 at 14:04 IV Flush (NS Flush) 2 ml UNSCH PRN IVF FLUSH AFTER USING IV ACCESS; Start 02/24 at 14:15 IV Flush 2 ml 2 ml BID IVF Last administered on 02/26/17 09:00; Start at 21:00 Cefazolin Sodium/ Sodium Chloride (Ancef Inj/NS Inj) 100 ml @ 200 mls/hr Q6H IV Last administered on 02/25/17 05:12; Start 02/24/17 at 17:00; Stop at 05:29; Status DC Miscellaneous Information (Post-op Orders (for Pharmacy)) STAT ONCE XX ; Start 02/24/17 at 14:15; Stop 02/24/17 at 14:36; Status DC Dexamethasone Sodium Phosphate (Decadron Inj) 10 mg ONCE ONCE IV Last administered on 02/25/17 08:29; Start 02/25/17 at 07:45; Stop 02/25/17 at 07:46 ; Status DC Enoxaparin Sodium (Lovenox Inj) 40 mg Q24H SQ Last administered on 02/25/17 12 :53; Start 02/25/17 at 13:00; Stop 03/06/17 at 13:01 Acetaminophen/ Hydrocodone Bitart ([place] 5-325 Mg) 1 tab Q4H PRN PO PAIN LESS THAN 5 ON SCALE Last administered on 02/25/17 12:59; Start 02/24/17 at 14:15 Acetaminophen/ Hydrocodone Bitart 2 tab 2 tab Q4H PRN PO PAIN SCALE 5 TO 10 Last administered on 02/26/17 09:26; Start 02/24/17 at 14:15 Tranexamic Acid/ Sodium Chloride (Cyklokapron Inj/ NS Inj) 105.87 ml @ 200 mls / hr UNSCH IV Last administered on 02/24/17 16:11; Start 02/24/17 at 15:00; Stop 02/24/17 at 21:00; Status DC Multivitamins/ Minerals Therapeutic (Theragran M Tab) 1 tab BID PO Last administered on 02/26/17 09:25; Start 02/25/17 at 21:00; Stop 04/26/17 at 20:59 Ondansetron HCl (Zofran Inj) 4 mg Q6H PRN IVP NAUSEA OR VOMITING Last administered on 02/24/17 21:08; Start 02/24/17 at 14:15 Docusate Sodium (Colace) 100 mg BID PO Last administered on 02/26/17 09:25; Start 02/25/17 at 21:00 Al Hydrox/Mg Hydrox/Simethicone (Mag-Al Plus Susp Liq) 30 ml Q6H PRN PO INDIGESTION; Start 02/24/17 at 14:15 Zolpidem Tartrate (Ambien) 5 mg HS PRN PO SLEEP; Start 02/24/17 at 21:00; Stop 02/25/17 at 20:25; Status DC Bisacodyl (Dulcolax Supp) 10 mg DAILY PRN RECTAL CONSTIPATION; Start 02/24/17 at 14:15 Magnesium Hydroxide (Milk Of Magnesia Liq) 30 ml DAILY PRN PO CONSTIPATION; Start 02/24/17 at 14:15 Naloxone HCl (Narcan Inj) 0.4 mg UNSCH PRN IV RESPIRATORY RATE LESS THAN 10 Last administered on 02/24/17 18:50; Start 02/24/17 at 14:15 Diphenhydramine HCl (Benadryl Inj) 25 mg Q6H PRN IV ITCHING; Start 02/24/17 at 14:15 Morphine Sulfate (Morphine Inj) 2 mg Q3H PRN IV PUSH pain greater than 5 Last administered on 02/24/17 21:08; Start 02/24/17 at 14:15 Amlodipine Besylate (Norvasc) 5 mg DAILY PO ; Start 02/25/17 at 09:00; Status Hold Valsartan (Diovan) 160 mg DAILY PO ; Start 02/25/17 at 09:00; Status Hold Miscellaneous Information ALL NURSING DEPARTME... UNSCH PRN .XX SEE LABEL COMMENTS; Start 02/24/17 at 14:20; Stop 02/25/17 at 14:19; Status DC Morphine Sulfate (*morphine INJ PERIprocedure ONLY) 8 mg STK-MED ONCE .ROUTE Last administered on 02/24/17 14:57; Start 02/24/17 at 14:55; Stop 02/24/17 at 14:56; Status DC Morphine Sulfate (*morphine INJ PERIprocedure ONLY) 8 mg STK-MED ONCE .ROUTE Last administered on 02/24/17 15:15; Start 02/24/17 at 15:15; Stop 02/24/17 at 15:16; Status DC Hydromorphone HCl (*DILAUDID PF INJ PERIprocedural ONLY) 1 mg STK-MED ONCE .ROUTE Last administered on 02/24/17 15:36; Start 02/24/17 at 15:36; Stop at 15:37; Status DC Hydromorphone HCl (*DILAUDID PF INJ PERIprocedural ONLY) 1 mg STK-MED ONCE .ROUTE Last administered on 02/24/17 15:58; Start 02/24/17 at 15:58; Stop at 15:59; Status DC Albuterol Sulfate (*ALBUTEROL NEB PERIprocedure ONLY) 2.5 mg STK-MED ONCE NEB Last administered on 02/24/17 18:04; Start 02/24/17 at 18:04; Stop 02/24/17 at 18:05; Status DC Acetaminophen (Tylenol) 325 mg ONCE ONCE PO Last administered on 02/25/17 13: 00; Start 02/25/17 at 13:00; Stop 02/25/17 at 13:01; Status DC Temazepam (Restoril) 30 mg HS PRN PO insomnia Last administered on 02/25/17 21 :35; Start 02/25/17 at 21:00 A/P Assessment and Plan A/P - osteoarthritis of the right knee- s/p right total knee arthroplasty continue with pain control and PT- management per ortho -hypertension; BP on low side; will continue hold BP meds today- will monitor for now. - hypothyroidism; resumed home meds -history of CVA; resume aspirin when ok with ortho -DVT prophylaxis with lovenox- per ortho. Discharge Planning dc planning per ortho. Nery Joe MD Feb 26, 2017 11:28
[2017-02-26 12:00] VITALS: BP 143/65; PULSE 120; RESP 16; TEMP 97; O2SAT 99
[2017-02-26] MEDS: ENOXAPARIN SODIUM 40 MG/0.4 ML SYRINGE SQ SCH (12:43)
--- NOTE | 2017-02-26 13:05 | PD.ORT.PN ---
Subjective Subjective Remarks pain controlled Objective Vitals Vital Signs Date Time Temp Pulse Resp B/P Pulse Ox O2 Delivery O2 Flow Rate FiO2 02/26/17 08:00 96.4 66 16 133/57 97 02/26/17 04:10 96.9 69 16 134/61 95 02/26/17 00:00 97.4 78 16 104/51 95 02/25/17 20:30 98.4 60 20 121/57 96 02/25/17 18:44 Room Air 02/25/17 17:00 97.3 72 16 119/58 96 I/O 02/25/17 02/25/17 02/25/17 02/26/17 02/26/17 02/26/17 07:00 15:00 23:00 07:00 15:00 23:00 Intake Total 1278 ml 720 ml 480 ml Output Total 850 ml Balance 428 ml 720 ml 480 ml Intake Oral 480 ml 720 ml 480 ml IV Total 798 ml Output Urine Total 850 ml # Voids 2 3 # Bowel Movements 0 Result Diagram: 02/26/17 0557 Imaging Last 24 hours Impressions Knee X-Ray 02/24/17 1404 Signed Impressions: Service Date/Time: Friday, February 24, 2017 14:30 - CONCLUSION: Total knee prosthesis in good position. Marcello Bettencourt Jr., MD Procedures Right TKA Objective Remarks The patient's dressing was changed with mild sanguinous drainage. Incision is well approximated with surgical clips intact. No redness or s/s of infection. Patient has moderate ecchymosis to the knee. Mild swelling. EHL/TA/G intact. 2 + pedal pulse. + SILT Assessment & Plan Assessment and Plan POD #2: Right TKA 1. WBAT RLE 2. Lovenox for DVT prophylaxis 3. Ice to the right knee PRN 4. D/c home today 5. US + for pop cyst, no DVT.. Srikanth Rivera MD Feb 26, 2017 13:05
--- NOTE | 2017-02-28 13:47 | HHI.DS ---
Discharge Summary Admission Date Feb 24, 2017 at 08:07 Discharge Date: Feb 26, 2017 Admitting Diagnosis Primary localized OA, lower leg Status post total knee replacement, right Diagnosis: (1) Status post total knee replacement, right Diagnosis: Principal (2) Primary localized osteoarthrosis, lower leg Diagnosis: Principal Procedures Right TKA Brief History This is a 77 year old female patient with severe OA of the right knee CBC/BMP: 02/26/17 0557 Significant Findings Laboratory Tests Test 02/26/17 05:57 Red Blood Count 2.72 MIL/MM3 (4.00-5.30) Hemoglobin 9.1 GM/DL (11.6-15.3) Hematocrit 24.9 % (35.0-46.0) Mean Corpuscular Hemoglobin 36.4 % Concent (32.0-36.0) PE at Discharge The patient's dressing was changed with mild sanguinous drainage. Incision is well approximated with surgical clips intact. No redness or s/s of infection. Patient has moderate ecchymosis to the knee. Mild swelling. EHL/TA/G intact. 2 + pedal pulse. + SILT Hospital Course The patient was admitted to the hospital for severe OA of the right knee to have a right TKA. The patient's surgery went well with no complications. The patient is WBAT. The patient is on a regular diet. The patient was placed on Lovenox for DVT prophylaxis. The patient was discharged home with home health. The patient will f/u with Dr. Rivera in 1-2 weeks. Pt Condition on Discharge: Stable Discharge Disposition: Disch w/ Home Health Serv Discharge Instructions Diet Instructions: As Tolerated, No Restrictions Activities You Can Perform: Weight Bearing as Alana Activities to Avoid: Strenuous Activity Follow up Referrals: Orthopedics with Srikanth Rivera MD [facility]/ with [facility] New Medications: Aspirin (Aspirin) 325 Mg Tab 325 MG PO DAILY Start Aspirin after Lovenox is completed. Prevent Blood Clot # 30 Ref 0 TAB Commode 3-in-1 (Commode 3-in-1) 1 Mis Mis 1 EA .ROUTE DIRECTED #1 Ref 0 EA CPM-Continuous Passive Motion Machine (CPM-Continuous Passive Motion Machine) 1 Ea Device 1 EA .ROUTE DIRECTED #1 Ref 0 EA Enoxaparin Inj (Lovenox Inj) 40 Mg/0.4 Ml Syr 40 MG SQ DAILY Start Aspirin after Lovenox is completed. Blood Clot Prevention # 10 Ref 0 SYRINGE Hydrocodone-Acetaminophen (Normal) 5-325 mg Tab 1-2 TAB PO Q4H PRN PAIN #60 Ref 0 TAB Walker with Front Wheels (Walker with Front Wheels) 1 Mis Mis 1 EA .ROUTE DIRECTED #1 Ref 0 EA Continued Medications: Acyclovir (Zovirax) 200 Mg Cap 200 MG PO DAILY Mgmt Viral Infection Ref 0 CAP Amlodipine-Valsartan (Exforge) 5-160 Mg Tab 1 TAB PO DAILY Blood Pressure Management #30 Ref 0 TAB Levothyroxine (Levothyroxine) 125 Mcg Tab 125 MCG PO DAILY Thyroid #30 Ref 0 TAB Liothyronine (Liothyronine) 5 Mcg Tab 5 MCG PO DAILY Thyroid Supplement #30 Ref 0 TAB Omeprazole (Omeprazole) 40 Mg Cap 40 MG PO DAILY #30 Ref 0 CAP Potassium Chloride ER (Potassium Chloride ER) 20 Meq Tab 20 MEQ PO DAILY Electrolyte Replacement #30 Ref 0 TAB Temazepam (Temazepam) 30 Mg Cap 30 MG PO HS PRN INSOMNIA #30 Ref 0 CAP Discontinued Medications: Aspirin (Aspirin) 325 Mg Tab 325 MG PO DAILY #30 Ref 0 TAB Phan Forrest Feb 28, 2017 13:46
== END 2017-02-26 14:46 | disposition home health service (06) | DRG 470 ==
LOC: HSDI 02-24 08:07 → N06B 02-24 20:30
PROVIDERS: ADMIT Orthopaedic Surgery; ATTEND Orthopaedic Surgery
PROC: 3E0T3BZ Introduction of Anesthetic Agent into Peripheral Nerves and Plexi, Percutaneous Approach (ICD-10-PCS; 2017-02-24)
PROC: 0SRC0J9 Replacement of Right Knee Joint with Synthetic Substitute, Cemented, Open Approach (ICD-10-PCS; principal; 2017-02-24 11:53)
DX: M17.11 Unilateral primary osteoarthritis, right knee (principal); I10 Essential (primary) hypertension; E03.9 Hypothyroidism, unspecified; Z86.73 Personal history of transient ischemic attack (TIA), and cerebral infarction without residual deficits; K21.9 Gastro-esophageal reflux disease without esophagitis; F41.9 Anxiety disorder, unspecified
CPT/HCPCS: 73560; 85027; 86850; 86900; 86901; 93971; 94150; C1776; C9290; J0131; J0171; J0690; J0735; J1100; J1170; J1580; J1650; J1885; J2250; J2270; J2310; J2370; J2405; J2710; J2795; J3010; J3370; J7030; J7050; J7120; J7613; L1830